=== PATIENT | female | born 1965 | race Caucasian/White ===

== ENCOUNTER 2019-05-17 09:28 | Emergency (ER) | payer OTHER ==
[~2019-05-17] VITALS: Ht 157.5 cm; Wt 85.3 kg
[2019-05-17 09:28] VITALS: BP_SYST 129
--- NOTE | 2019-05-17 09:28 | NUR ---
BROUGHT BACK TO BED #5 AND TRIAGED. REPORT GIVEN TO KOREY
--- NOTE | 2019-05-17 09:32 | NUR ---
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 PT STATES SHE HAS H/O ANXIETY AND TOOK HER SERAX LAST NIGHT. DAUGHTER STATES THAT PT "ACTING SLEEPY" THIS MORNING, PT IS ALERT AND ORIENTED AT THIS TIME.
--- NOTE | 2019-05-17 09:37 | NUR ---
DR BROWNING AT BEDSIDE FOR EVALUATION
--- NOTE | 2019-05-17 09:53 | NUR ---
PATIENT LEFT TO RADIOLOGY VIA CT IN STABLE CONDITION. Addendum: 05/17/19 at 0954 by RADHA VIA DAYAN
[2019-05-17 10:12] LABS: BASOPHILS # (AUTO) 0.1 K/uL (0.0-0.2); BASOPHILS % (AUTO) 0.7 % (0.0-2.0); EOSINOPHILS # (AUTO) 0.1 K/uL (0.0-0.4); HEMATOCRIT 43.6 % (36-48); HEMOGLOBIN 14.4 g/dL (12.0-16.0); LYMPHOCYTES # (AUTO) 3.5 K/uL (1.0-5.5); LYMPHOCYTES % (AUTO) 40.2 % (20.5-51.5); MEAN CORPUSCULAR HEMOGLOBIN 29 pg (27-31); MEAN CORPUSCULAR HGB CONC 33 % (32-36); MEAN CORPUSCULAR VOLUME 89 fL (79.0-98.0); MONOCYTES # (AUTO) 0.4 K/uL (0.0-1.0); MONOCYTES % (AUTO) 5.1 % (1.7-9.3); NEUTROPHILS # (AUTO) 4.6 K/uL (1.8-7.7); PLATELET COUNT (AUTO) 328 K/uL (130-430); RED BLOOD CELL COUNT(AUTO) 4.91 MIL/uL (4.2-6.2); RED CELL DISTRIBUTION WIDTH 14.3 % (9.0-15.0); WHITE BLOOD COUNT (AUTO) 8.7 K/uL (4.8-10.8)
[2019-05-17 10:16] LABS: CALCIUM 9.4 mg/dL (8.4-11.0); CREATININE 1.05 mg/dL (0.55-1.30); POTASSIUM 3.3 mmol/L (3.5-5.1)
[2019-05-17 10:21] LABS: PROTHROMBIN TIME 9.8 SECS (9.5-12.5)
[2019-05-17 10:22] LABS: ALBUMIN 3.3 g/dL (3.4-4.8); TOTAL BILIRUBIN 0.3 mg/dL (0.0-1.0)
[2019-05-17 10:23] LABS: BILIRUBIN,URINE NEGATIVE (NEGATIVE); BLOOD, URINE NEGATIVE (NEGATIVE); CLARITY/URINE SL HAZY (CLEAR); COLOR,URINE YELLOW (YELLOW); GLUCOSE,URINE NEGATIVE (NEGATIVE); KETONES,URINE NEGATIVE (NEGATIVE); LEUKOCYTE ESTERASE ,URINE TRACE (NEGATIVE); NITRITE, URINE NEGATIVE (NEGATIVE); PH,URINE 5.5 (5.0-8.0); PROTEIN URINE NEGATIVE (NEGATIVE); UROBILINOGEN,URINE 0.2 (0.2-1.0)
[2019-05-17 10:37] LABS: BARBITURATE, URINE NEGATIVE (NEG <=200); BENZODIAZEPINE, URINE POSITIVE (NEG <=150); CANNABINOID, URINE NEGATIVE (NEG <=50); COCAINE, URINE NEGATIVE (NEG <=150); METHAMPHETAMINES SCREEN,URINE NEGATIVE (NEG <=500); OPIATE, URINE NEGATIVE (NEG <=100); PHENCYCLIDINE SCREEN,URINE NEGATIVE (NEG <=25); UR TRICYCLIC ANTIDEPRESSANTS NEGATIVE (NEG <=300); URINE AMPHETAMINE NEGATIVE (NEG <=500); URINE METHADONE NEGATIVE (NEG <=200); URINE OXYCODONE SCREEN NEGATIVE (NEG <=100); URINE PROPOXYPHENE SCREEN NEGATIVE (NEG <=300)
[2019-05-17 10:39] LABS: BACTERIA,URINE MODERATE /HPF (None Seen); RBC,URINE 0-3 /HPF (0-3)
[2019-05-17 10:40] LABS: MUCUS,URINE None Seen /LPF (None Seen)
--- NOTE | 2019-05-17 11:31 | NUR ---
Patient given written and verbal discharge instructions and verbalizes understanding. ER MD Garza discussed with patient the results and treatment provided. Patient in stable condition. ID arm band removed. Rx of Cipro given. Patient educated on pain management and to follow up with PMD. Pain Scale 0. Opportunity for questions provided and answered. Medication side effect fact sheet provided.
[2019-05-17 11:32] VITALS: BP_SYST 138
== END 2019-05-17 11:31 | disposition home or self-care (01) ==
LOC: SED 09:28
DX: F41.9 Anxiety disorder, unspecified (principal); N39.0 Urinary tract infection, site not specified; Z88.0 Allergy status to penicillin; Z88.2 Allergy status to sulfonamides; Z88.8 Allergy status to other drugs, medicaments and biological substances
CPT/HCPCS: 36415; 70450-TC; 71045; 80053; 80307; 81000-TC; 85025; 85610-TC; 85730-TC; 87086; 93005; 99284